=== PATIENT | female | born 1955 | race Caucasian/White ===

== ENCOUNTER → 2017-01-01 | Outpatient (CLI) | payer OTHER ==
[~2017-01-01] MED LIST: AMARYL PO; AMITRYPTYLINE PO; ASPIRINEC PO; CALAN PO; CELEBREX PO; CERTAGEN PO; DARVOCET-N 1001 TAB PO; GLUCOPHAGE XR500 MG PO; HCTZ PO; LASIX PO; LISINOPRIL PO; METHOTREXATE2.5 MG PO; PLAQUENIL200 MG PO; SKELAXIN PO; ZOLOFT PO
[2017-01-01 12:58] LABS: CALCIUM SERUM 9.5 mg/dL (8.4-10.2); CREATININE SERUM 0.6 mg/dL (0.6-1.4); GLOM FILT RATE Estimated 99.1 mL/min (>60); POTASSIUM 4.7 mmol/L (3.5-5.1)
[2017-01-02 16:52] LABS: MICROALB UR (PNL) 0.1 mg/dL (***)
== END | disposition home or self-care (01) ==
LOC: CLAB 12:04
PROVIDERS: Internal Medicine Endocrinology, Diabetes & Metabolism
DX: E11.65 Type 2 diabetes mellitus with hyperglycemia (principal)
CPT/HCPCS: 36415; 80048; 82043; 82570; 83036